=== PATIENT | female | born 1945 | race Caucasian/White ===

== ENCOUNTER → 2017-07-06 | Outpatient (CLI) | payer MEDICARE, OTHER ==
[~2017-07-06] MED LIST: ALEVE220 MG PO; ALL DAY ALLERGY10 M3 PO; APAP500 PO; ASPIR 8181 MG PO; ASPIRIN325 PO; ATORVASTATIN CA40 MG PO; BACTRIM DS TAB1 EACH PO; CINNAMON PLUS1 EACH PO; COMPLETE MULTI1 EAC3 PO; CQ-10 PO; DELSYM COU30 MG/5 M1 PO; DENTA 5000 PLUS51 GM DT; FIBER THERAPY625 MG PO; FISH OIL 1,001000 M2 PO; GLUCOSAMINE H1500 MG PO; IBUPROFEN 200200 M1 PO; LISINOPRIL10 MG PO; MAGOX 400400 MG PO; MUCINEX TA600 MG/TA2 PO; OXYCODONE HCL 55 MG PO; POTASSIUM GLUC500 GM PO; PROMETHAZINE/C118 ML PO; RED YEAST RICE600 M1 PO; TUMERIC CURCUMIN PO; VISION PLUS LU1 EACH PO; VITAMIN D1000 UNI1 PO; XARELTO10 MG PO; ZOFRAN ODT4 MG DISSOLVE; [UNRECOGNIZED DRUG - OTHER] PO
== END ==
LOC: M.CT 09:30
DX: I25.10 Atherosclerotic heart disease of native coronary artery without angina pectoris (principal); I72.8 Aneurysm of other specified arteries; R91.8 Other nonspecific abnormal finding of lung field

== ENCOUNTER → 2017-11-18 | Outpatient (CLI) | payer MEDICARE, OTHER | LOC: M.CT 09:01 | DX: R91.8 Other nonspecific abnormal finding of lung field (principal) ==

== ENCOUNTER → 2018-07-28 | Outpatient (CLI) | payer MEDICARE, OTHER | LOC: M.CT 08:40 | DX: R91.8 Other nonspecific abnormal finding of lung field (principal); K76.89 Other specified diseases of liver; I72.8 Aneurysm of other specified arteries ==

== ENCOUNTER → 2019-09-21 | Outpatient (CLI) | payer MEDICARE, OTHER | LOC: M.LAB 15:06 | PROVIDERS: ATTEND Internal Medicine Gastroenterology | DX: Z01.812 Encounter for preprocedural laboratory examination (principal); Z11.59 Encounter for screening for other viral diseases ==